=== PATIENT | male | born 1985 | race African-American/Black ===

== ENCOUNTER 2016-05-26 09:32 | Emergency (ER) | payer OTHER | END 2016-05-26 10:38 | disposition home or self-care (01) | LOC: FER 09:32 | DX: S83.92XA Sprain of unspecified site of left knee, initial encounter (principal); I10 Essential (primary) hypertension; F17.200 Nicotine dependence, unspecified, uncomplicated; W19.XXXA Unspecified fall, initial encounter; Y93.89 Activity, other specified; Y99.8 Other external cause status | CPT/HCPCS: 73564; 99283 ==

== ENCOUNTER 2016-06-23 17:51 | Emergency (ER) | payer OTHER | END 2016-06-23 19:02 | disposition home or self-care (01) | LOC: FER 17:51 | DX: S83.92XA Sprain of unspecified site of left knee, initial encounter (principal); Y93.67 Activity, basketball | CPT/HCPCS: J1885 ==

== ENCOUNTER 2021-12-07 07:25 | Emergency (ER) | payer OTHER ==
[~2021-12-07 07:25] MED LIST: FLEXERIL10 MG PO; IBUPROFEN800 MG PO; MEDROL 4MG DOSEP4 MG PO; ROBAXIN750 MG PO; VIBRAMYCIN100 MG PO; VOLTAREN **OUT50 MG PO
[2021-12-07] MEDS ORDERED: CLEOCIN300 MG PO (08:04)
[2021-12-07] MEDS ORDERED: NAPROXEN500 MG PO (08:04)
== END 2021-12-07 08:05 | disposition home or self-care (01) ==
LOC: FER 07:25
DX: K02.9 Dental caries, unspecified (principal); K05.00 Acute gingivitis, plaque induced; I10 Essential (primary) hypertension; Z28.310 Unvaccinated for COVID-19; Z79.899 Other long term (current) drug therapy
CPT/HCPCS: 99282